=== PATIENT | female | born 1980 | race Native Hawaiian/Other Pacific Islander ===

== ENCOUNTER 2019-03-08 13:05 | Emergency (ER) | payer OTHER ==
[~2019-03-08] VITALS: Ht 157.5 cm; Wt 86.2 kg
[2019-03-08 13:11] VITALS: TEMP 98.2
[2019-03-08 14:36] VITALS: BP 128/72
== END 2019-03-08 14:37 | disposition home or self-care (01) ==
LOC: ED 13:05
DX: S33.5XXA Sprain of ligaments of lumbar spine, initial encounter (principal); M54.31 Sciatica, right side; X50.0XXA Overexertion from strenuous movement or load, initial encounter
CPT/HCPCS: 81000; 96372; 99282; J1885

== ENCOUNTER 2019-03-11 21:33 | Emergency (ER) | payer OTHER ==
[~2019-03-11] VITALS: Ht 157.5 cm; Wt 96.6 kg
[2019-03-12 00:21] VITALS: BP 116/76; TEMP 98.1
== END 2019-03-12 00:23 | disposition home or self-care (01) ==
LOC: ED 21:33
DX: S33.5XXA Sprain of ligaments of lumbar spine, initial encounter (principal)
CPT/HCPCS: 81000; 81025; 96372; 99283; J1885; J2175; J3410